=== PATIENT | female | born 1990 ===

== ENCOUNTER 2017-08-11 17:48 | Emergency (ER) | payer OTHER ==
[~2017-08-11] VITALS: Ht 180.3 cm; Wt 119.7 kg
[2017-08-11 20:16] LABS: *URINE HCG, QUAL NEGATIVE (NEGATIVE)
[2017-08-11] MEDS ORDERED: HYDROCODONE/APAP 10-325 MG TABLET PO ONE (21:15)
[2017-08-11] MEDS ORDERED: ONDANSETRON ODT 4 MG TAB.RAPDIS SL ONE (21:15)
[2017-08-11] MEDS ORDERED: HYDROCODONE/APAP 10-325 MG TABLET ONE (21:27)
[2017-08-11] MEDS ORDERED: ONDANSETRON ODT 4 MG TAB.RAPDIS ONE (21:27)
--- NOTE | 2017-08-11 21:47 | NUR ---
Patient discharged to home in stable conditon. Written and verbal after care instructions given. Patient verbalizes understanding of instructions.
== END 2017-08-11 21:48 | disposition home or self-care (01) ==
LOC: ER 17:48
DX: R51 Headache (principal); J02.9 Acute pharyngitis, unspecified
CPT/HCPCS: 70450; 71010; 84703; A4663; J7030; Q0162